=== PATIENT | female | born 1950 | race American Indian/Alaskan Native ===

== ENCOUNTER 2017-04-14 09:44 | Outpatient (CLI) | payer MEDICARE ==
--- NOTE | 2017-04-14 11:14 | Mammography Report ---
LEFT DIGITAL DIAGNOSTIC MAMMOGRAM with CAD and LEFT BREAST ULTRASOUND: 04/14/17 09:44:00 CLINICAL: Breast cancer survivor status post left partial mastectomy and history of a recurrence in the left breast in 2012. She reports a new clear spontaneous left nipple discharge. COMPARISON:06/28/16 FINDINGS: The breast is heterogeneously dense, which may obscure small masses. Stable skin thickening of the breast and stable subareolar calcifications with benign morphology.No mass, architectural distortion or suspicious calcifications. Ultrasound of the left breast (including all four quadrants and the retroareolar area) was performed and demonstrated normal fibroglandular and fatty structures. No mass, cyst or shadowing. IMPRESSION: Negative mammogram and negative left breast ultrasound. BI-RADS CATEGORY: 0--Needs Additional Imaging RECOMMENDATION: Breast MRI for further workup of left nipple discharge. ACR BI-RADS MAMMOGRAPHIC CODES: 0 = Needs additional imaging evaluation; 1 = Negative; 2 = Benign; 3 = Probably benign; 4 = Suspicious; 5 = Malignant; 6 = Known biopsy-proven malignancy COMMENT: 1. Dense breast tissue, i.e., adenosis, fibrocystic changes, etc., may obscure an underlying neoplasm. 2. Approximately 10% of cancers are not detected with mammography. 3. A negative mammography report should not delay biopsy if a clinically suspicious mass is present. COMMENT: Patient follow-up letters are generated by our [employer] application.
== END 2017-04-14 09:45 | disposition home or self-care (01) ==
LOC: SPVWC 09:44
PROVIDERS: ATTEND Internal Medicine Hematology & Oncology
DX: C50.412 Malignant neoplasm of upper-outer quadrant of left female breast (principal); N64.52 Nipple discharge; R92.1 Mammographic calcification found on diagnostic imaging of breast; Z90.12 Acquired absence of left breast and nipple
CPT/HCPCS: 76641; G0206

== ENCOUNTER 2017-07-11 11:03 | Outpatient (CLI) | payer MEDICARE ==
--- NOTE | 2017-07-11 13:46 | Mammography Report ---
BILATERAL DIGITAL DIAGNOSTIC MAMMOGRAM WITH CAD : 07/11/17 11:03:00 CLINICAL: Breast cancer survivor status post left partial mastectomy. COMPARISON:04/14/17 FINDINGS: The breasts are mostly fatty with scattered bilateral fibroglandular densities. The left breast is smaller than the right with benign upper outer postsurgical scar. No mass, architectural distortion or suspicious calcifications. IMPRESSION: No mammographic evidence of malignancy. BI-RADS CATEGORY: 2 -- Benign RECOMMENDATION: Routine mammographic screening. COMMENT: Patient follow-up letters are generated via our [employer] application.
== END 2017-07-11 11:04 | disposition home or self-care (01) ==
LOC: SPVWC 11:03
PROVIDERS: ATTEND Surgery
DX: R92.8 Other abnormal and inconclusive findings on diagnostic imaging of breast (principal); Z85.3 Personal history of malignant neoplasm of breast; Z90.12 Acquired absence of left breast and nipple
CPT/HCPCS: 77066

== ENCOUNTER 2020-07-17 08:17 | Outpatient (CLI) | payer MEDICARE ==
--- NOTE | 2020-07-17 11:38 | Mammography Report ---
DIGITAL SCREENING MAMMOGRAM WITH CAD, 07/17/2020 CLINICAL INFORMATION / INDICATION: Routine screening mammography. SCREENING MAMMO TECHNIQUE: Digital bilateral 2D mammography was obtained in the craniocaudal and mediolateral obliqu e projections. This examination was interpreted with the benefit of Computer-Aided Detection analysis . COMPARISON: 07/16/2019 FINDINGS: Breast Density: The breasts are heterogeneously dense, which may obscure small masses. No dominant mass, suspicious calcifications, or architectural distortion in either breast. Stable size discrepancy with the left breast smaller than the right and old postoperative change in t he left including a biopsy clip with a scar noted. IMPRESSION: No mammographic evidence of malignancy. Follow up recommendation: Routine yearly BI-RADS Category 2: Benign. A "normal" or negative report should not discourage follow up or biopsy of a clinically significant f inding. A written summary of these findings will be mailed to the patient. The patient will be entered into a mammography reporting system which will generate a reminder letter for the patient's next appointmen t at the appropriate interval. The [employer] recommends yearly mammograms starting at age 40 and continuing as l peng as a woman is in good health. Breast MRI is recommended for women with an approximate 20-25% or greater lifetime risk of breast cancer, including women with a strong family history of breast or ova ted cancer or who have been treated for Hodgkin's disease. Signer Name: Peter Cox MD Signed: 07/17/2020 11:33 AM Workstation Name: [id number]
== END 2020-07-17 08:18 | disposition home or self-care (01) ==
LOC: SPVWC 08:17
PROVIDERS: ATTEND Surgery
DX: Z12.31 Encounter for screening mammogram for malignant neoplasm of breast (principal)
CPT/HCPCS: 77067